=== PATIENT | male | born 1950 | race Caucasian/White ===

== ENCOUNTER 2020-01-22 19:21 | Emergency (ER) | payer OTHER, MEDICARE ==
[~2020-01-22] VITALS: Ht 177.8 cm; Wt 88.6 kg
[2020-01-22 19:36] VITALS: BP 154/87
[2020-01-22] MEDS ORDERED: proparacaine 0.5% ophthalmic drops 15ml EACHEYE ONE (19:50)
[2020-01-23] MEDS ORDERED: ciprofloxacin 0.3% 2.5ml ophthalmic solution LEFTEYE SCH
== END 2020-01-22 20:50 | disposition home or self-care (01) ==
LOC: ER 19:22
DX: T15.02XA Foreign body in cornea, left eye, initial encounter (principal); X58.XXXA Exposure to other specified factors, initial encounter; Y93.89 Activity, other specified; Y92.89 Other specified places as the place of occurrence of the external cause; Y99.8 Other external cause status
CPT/HCPCS: 65222; 99284